=== PATIENT | female | born 1945 | race Caucasian/White ===

== ENCOUNTER 2017-08-26 14:59 | Inpatient (IN) | payer OTHER ==
[2017-08-26] MEDS ORDERED: ONDANSETRON 4 MG/2 ML VIAL IV PRN (17:22)
[2017-08-26] MEDS ORDERED: VANCOMYCIN 1.5 GM in NA CHLORIDE 0.9% 500 ML IVPB SCH (18:00)
[2017-08-26 18:05] LABS: Potassium 4.7 mmol/L (3.5-5.1)
[2017-08-26 19:01] LABS: Absolute Monocytes 1.5 K/uL (0.1-1.3); Basophils % 0.3 % (0-1.3); Eosinophils % 0.3 % (0-4.4); Hematocrit 33.2 % (36.0-45.0); Lymphocytes % 6.1 % (15.3-44.8); MCH 31.5 pg (27.0-35.0); MCV 93.2 fL (80-100); MPV 7.6 fL (7.6-11.3); RBC Red Blood Cell Count 3.57 M/uL (3.86-4.86)
[2017-08-26] MEDS: HYDROCODONE/APAP 10/325 TAB PO PRN (20:25)
[2017-08-26 21:06] LABS: Urine Appearance CLEAR; Urine Blood NEGATIVE (NEG); Urine Color DK YELLOW; Urine Glucose NEGATIVE (NEG); Urine Protein 1+ (NEG); Urine Specific Gravity 1.025 (1.005-1.030); Urine pH 5.5 (5.0-7.0)
[2017-08-26 21:28] LABS: Urine Bilirubin NEGATIVE (NEG); Urine Microscopic Reflex ORDER UMIC
[2017-08-26 21:39] LABS: Urine Bacteria <20 /HPF (<20); Urine Culture Reflex Order REFLEXED; Urine Mucus 1+ /HPF (NONE SEEN); Urine RBC <5 /HPF (NONE SEEN)
--- NOTE | 2017-08-27 03:16 | CON ---
Date of Consultation: 08/26/2017 Reason: Infection in the perineum. History Of Present Illness: The patient is a 71-year-old female who comes to Dr. Willett's office wi th a couple of days of increasing erythema, warmth, edema and pain in the right perineum region. She states there is no discharge, however, there is increasing pain. There is fever in the area. Review of Systems: Otherwise unremarkable. Past Medical History: Negative. Past Surgical History: Cholecystectomy. Allergies: NO ALLERGIES. Social History: She does not smoke or drink. Family History: Noncontributory. Physical Examination: Vital Signs: Stable. She is afebrile. General: She is awake, alert, oriented x3. Head and Neck: Cranial nerves 2 through 12 are grossly within normal limits. No neck masses. No JV D. Throat clear. Neck supple. Chest: Clear. Heart: S1 and S2. Abdomen: Soft. Extremities: Neurovascularly intact. Neuro: Nonfocal. Skin: On the right mons pubis area there is a large 8 x 8 cm area of erythema, warmth, edema and isidro tral fluctuance. Laboratory Data: White count is 16.7 with a left shift. Chemistries reviewed, essentially within no rmal limits. Assessment: Mons pubis abscess cellulitis. Recommendation: Admit, n.p.o., IV fluids, IV antibiotics. To the OR for incision, drainage, and matthew ridement. The patient understands the risks, benefits, and alternatives and agrees to proceed. SHANNAN/MODL Voice ID: [id number] Report ID: [id number]
--- NOTE | 2017-08-27 04:13 | HP ---
Date of Admission: 08/26/2017 Entrance Complaint: Inguinal discomfort. History Of Present Illness: The patient was seen in the office approximately 2 weeks ago with what s eemed to be a moderate-sized pubic abscess. She was placed on Keflex with good response. She states it is felt much better and seemed to improve considerably. She came off the antibiotic after a week , she was okay for a couple days, and then noticed for the last day or so of increased discomfort, si ze, and associated this time with a temperature over 100 on a few occasions, seen in the office, and is admitted for probable I and D. Past History: The patient had an abscess of her back and axillary area a number of years ago, also h ad cholecystectomy and hysterectomy in the remote past. Family History: Noncontributory. Social History: Nonsmoker, nondrinker. Physical Examination: General: The patient is a middle-aged female, and in no acute distress. Vital Signs: Stable. Head and Neck: Normocephalic. Pupils are equal and reactive to light and accommodation. Fundi nega tive. Trachea midline. Thyroid not palpable. ENT: Negative. Chest: Clear to P and A. Breasts: Negative. Cardiovascular: PMI midclavicular line. Heart: Sounds normal. Peripheral pulses are present and equal bilaterally. Abdomen: No organomegaly. Bowel sounds are present. Extremities: Good tone and movement. Bilateral reflexes physiologic. Hard indurated erythematous a baron involving the labia and just lateral to it. Impression: Abscess of labia and suprapubic area. Plan: The patient will be admitted and placed on IV antibiotics in the form of vancomycin. Consulta tion will be obtained with her packer fuser. This was done, however, she is not going to be in town; therefore, a consultation was transferred to a surgeon, Dr. Santillan, who actually had done the abscess on her in the past. HR/MODL Voice ID: [id number]
[2017-08-27] MEDS: ACETAMINOPHEN 500 MG TAB PO PRN ×2 (06:11→20:19)
[2017-08-27 06:42] LABS: Absolute Lymphocytes (CBC) 1.5 K/uL (0.7-4.9); Absolute Monocytes 1.6 K/uL (0.1-1.3); Absolute Neutrophil 14.4 K/uL (1.8-8.0); Basophils % 0.3 % (0-1.3); Eosinophils % 0.4 % (0-4.4); Hematocrit 34.3 % (36.0-45.0); Lymphocytes % 8.4 % (15.3-44.8); MCH 32.1 pg (27.0-35.0); MCV 93.3 fL (80-100); MPV 7.3 fL (7.6-11.3); Monocytes % 9.3 % (3.3-12.3); RBC Red Blood Cell Count 3.67 M/uL (3.86-4.86)
[2017-08-27] MEDS ORDERED: Ringers Lactate 1,000 ML IV ONE (08:32)
[2017-08-27] MEDS ORDERED: BUPIVACAINE 0.5% PF 10 ML VIAL ONE (09:11)
[2017-08-27] MEDS ORDERED: LIDOCAINE 1% MPF 5 ML VIAL ONE (09:25)
[2017-08-27] MEDS ORDERED: PROPOFOL 200 MG/20 ML VIAL IV ONE (09:25)
[2017-08-27] MEDS ORDERED: MIDAZOLAM HCL 2 MG/2 ML INJ ONE (09:25)
[2017-08-27] MEDS ORDERED: FENTANYL CITR 100 MCG/2 ML ONE (09:25)
[2017-08-27] MEDS ORDERED: EPHEDRINE SULF 50 MG/10 ML SYR ONE (09:47)
[2017-08-27] MEDS ORDERED: KETOROLAC 30 MG/ML INJ ONE (09:52)
[2017-08-27] MEDS ORDERED: ONDANSETRON HCL 40 MG/20 ML VIAL ONE (09:55)
--- NOTE | 2017-08-27 10:02 | P.OP ---
Preoperative diagnosis: Mons Pubis Abscess Postoperative diagnosis: same Primary procedure: I and D and Debridement Mons Pubis Abscess Anesthesia: gen Estimated blood loss: min Specimen: pus Findings: as above Complications: None Transferred to: Recovery Room Condition: Good
[2017-08-27] MEDS ORDERED: CHLORHEXIDINE GLUCO 4% 120 ML TOP SCH (10:16)
[2017-08-27] MEDS: HYDROCODONE/APAP 10/325 TAB PO PRN (11:02)
--- NOTE | 2017-08-27 12:29 | OP ---
Date of Procedure: 08/27/2017 Surgeon: Chandra Santillan MD Preoperative Diagnosis: Mons pubis abscess with cellulitis. Postoperative Diagnosis: Mons pubis abscess with cellulitis. Procedure: Incision, drainage, and debridement of mons pubis abscess. Estimated Blood Loss: Minimal. Specimen: Pus. Findings: As above. Anesthesia: General. Complications: None. Disposition: The patient tolerated the procedure in stable condition and taken to Recovery in good g eneral condition. /MODL Voice ID: [id number] Report ID: [id number]
[2017-08-27] MEDS: VANCOMYCIN 1.5 GM in NA CHLORIDE 0.9% 500 ML IVPB SCH (17:26)
[2017-08-27] MEDS: MUPIROCIN 2% OINT 22GM TUBE TOP SCH (20:20)
[2017-08-28] MEDS: HYDROCODONE/APAP 10/325 TAB PO PRN ×3 (01:12→20:29)
[2017-08-28] MEDS: PANTOPRAZOLE 40MG TABLET PO SCH (06:23)
[2017-08-28] MEDS: ACETAMINOPHEN 500 MG TAB PO PRN (06:31)
[2017-08-28] MEDS: FENOFIBRATE 160 MG TAB PO SCH (09:00)
[2017-08-28] MEDS: VENLAFAXINE HCL XR 75 MG CAP PO SCH (09:00)
[2017-08-28] MEDS ORDERED: HOME MED 1 EA UNK (Omeprazole [Prilosec] 40 MG) PO SCH (09:00)
[2017-08-28] MEDS: MELOXICAM 7.5 MG TAB PO SCH (09:00)
[2017-08-28] MEDS: MUPIROCIN 2% OINT 22GM TUBE TOP SCH ×2 (09:02→20:31)
[2017-08-28] MEDS: MONTELUKAST 10 MG TAB PO SCH (09:05)
[2017-08-28] MEDS: LEFLUNOMIDE 10 MG TABLET PO SCH (11:13)
--- NOTE | 2017-08-28 11:30 | PN ---
Date of Progress Note: 08/28/2017 Subjective: The patient is awake, alert. No pain. Objective: Vital Signs: Stable, afebrile. Pelvic: Dressing is clean, dry, and intact. Laboratory Data: The cultures are pending. Assessment: Status post incision and drainage, mons pubis abscess. Recommendations: Check cultures. Once we get that, she can be discharged home on oral antibiotics. Wound care is ordered. /MODL Voice ID: [id number] Report ID: [id number]
[2017-08-28] MEDS: VANCOMYCIN 1.5 GM in NA CHLORIDE 0.9% 500 ML IVPB SCH (17:39)
[2017-08-29] MEDS: HYDROCODONE/APAP 10/325 TAB PO PRN ×2 (05:06→11:17)
[2017-08-29] MEDS: PANTOPRAZOLE 40MG TABLET PO SCH (05:06)
[2017-08-29 08:57] LABS: BUN Blood Urea Nitrogen 8 mg/dL (7-18); Bicarbonate 30 mmol/L (21-32); Glucose Level 89 mg/dL (74-106); Potassium 3.7 mmol/L (3.5-5.1); Sodium Level 140 mmol/L (136-145)
[2017-08-29] MEDS: LEFLUNOMIDE 10 MG TABLET PO SCH (08:58)
[2017-08-29] MEDS: FENOFIBRATE 160 MG TAB PO SCH (08:59)
[2017-08-29] MEDS: MELOXICAM 7.5 MG TAB PO SCH (08:59)
[2017-08-29] MEDS: MONTELUKAST 10 MG TAB PO SCH (08:59)
[2017-08-29] MEDS: VENLAFAXINE HCL XR 75 MG CAP PO SCH (08:59)
[2017-08-29] MEDS: MUPIROCIN 2% OINT 22GM TUBE TOP SCH (09:01)
[2017-08-29] MEDS ORDERED: VANCOMYCIN 1.5 GM in NA CHLORIDE 0.9% 500 ML IVPB SCH (12:00)
--- NOTE | 2017-08-29 13:28 | PN ---
Date of Progress Note: 08/29/2017 Subjective: The patient is awake, alert. No complaint. Objective: Vital signs: Stable, afebrile Pelvic: Dressing is clean dry intact Laboratory Data: Cultures growing out MRSA. Assessment: Status post incision and drainage and debridement of mons pubis abscess. Recommendations: The patient is cleared for discharge on oral antibiotics consisting of 2 of the fol lowing Bactrim, rifampin, or doxycycline. Hibiclens and Bactroban is ordered. Wound care is ordered . Follow up in my office in 2 weeks. /MODL Voice ID: [id number] Report ID: [id number]
--- NOTE | 2017-08-29 17:16 | PN ---
Date of Progress Note: 08/28/2017 Subjective: The patient continues to feel considerably better as far as the discomfort is concerned. Her culture preliminary does reveal staph, but did not indicate whether there is MRSA or not. We w ill therefore continue with vancomycin until this is established. HR/MODL Voice ID: [id number] Report ID: [id number]
--- NOTE | 2017-08-29 19:39 | PN ---
Date of Progress Note: 08/29/2017 Subjective: The patient states she is feeling better. Not too much in the way of discomfort in the mons area. MRSA sensitive to Bactrim and tetracycline was noted. Therefore being discharged on Bact rim. Dressing changes to be done by home health. Follow up with Dr. Santillan in 2 weeks. HR/MODL Voice ID: [id number] Report ID: [id number]
--- NOTE | 2017-08-30 10:56 | PN ---
The patient feels much better tonight, obviously the pressure has been relieved in the abscessed area . Continue on her IV antibiotics, we are awaiting culture. As of note that the patient is on immuno suppressive medication for RA and she is advised to discuss this on her next visit to the rheumatolog ist, which actually coincidently is within the past 2 weeks. Depending on the cultures, the patient may be discharged in next day or so. HR/MODL Voice ID: [id number] Report ID: [id number]
== END 2017-08-29 16:40 | disposition home health service (06) | DRG 603 ==
LOC: 4TH 15:09 → OBSVTOIN 08-27 13:53
PROVIDERS: ADMIT Family Medicine; ATTEND Family Medicine
PROC: 0W9 Anatomical Regions, General, Drainage (ICD-10-PCS; principal; 2017-08-27 10:30)
DX: L02.215 Cutaneous abscess of perineum (principal); B95.62 Methicillin resistant Staphylococcus aureus infection as the cause of diseases classified elsewhere; M06.9 Rheumatoid arthritis, unspecified; Z79.899 Other long term (current) drug therapy; L03.315 Cellulitis of perineum
CPT/HCPCS: 36415; 80048; 80202; 81003; 81015; 85025; 87070; 87075; 87077; 87086; 87088; 87186; 87205; J2250; J2405; J3010